=== PATIENT | female | born 1940 | race Caucasian/White ===

== ENCOUNTER 2024-04-07 05:15 | Inpatient (IN) | payer OTHER ==
[2024-04-07 05:47] LABS: Absolute Eosinophils 0.1 K/uL (0-0.5); Absolute Lymphocytes (CBC) 4.4 K/uL (0.7-4.9); Absolute Monocytes 0.4 K/uL (0.1-1.3); Absolute Neutrophil 3.9 K/uL (1.8-8.0); Basophils % 0.2 % (0-1.3); Eosinophils % 1.5 % (0-4.4); Hematocrit 38.2 % (36.0-45.0); Hemoglobin 12.9 g/dL (12.0-15.0); Lymphocytes % 49.5 % (15.3-44.8); MCH 30.6 pg (27.0-35.0); MCHC 33.8 g/dL (32.0-36.0); MCV 90.6 fL (80-100); MPV 9.2 fL (7.6-11.3); Neutrophils % 43.8 % (41.7-73.7); Nucleated Red Blood Cells % 0.1 % (0-0); Platelets 197 thou/uL (152-406); RBC Red Blood Cell Count 4.22 M/uL (3.86-4.86); Red Cell Distribution Width 13.7 % (12.1-15.2)
[2024-04-07 05:51] LABS: Protime INR 0.98
[2024-04-07 06:08] LABS: Albumin 3.5 g/dL (3.4-5.0); Albumin/Globulin Ratio 1.1 (1.1-1.8); Anion Gap 12.3 mEq/L (5.0-15.0); Bilirubin Direct 0.2 mg/dL (0-0.2); Bilirubin Indirect, Calculated 0.6 mg/dL (0.2-0.8); Bilirubin Total 0.8 mg/dL (0.2-1.0); Globulin 3.2 g/dL (2.3-3.5); Potassium 3.3 mEq/L (3.5-5.1); Protein, Total 6.7 g/dL (6.4-8.2)
[2024-04-07] MEDS ORDERED: MORPHINE 2 MG/ML SYR ONE (06:08)
[2024-04-07] MEDS ORDERED: NA CHLORIDE 0.9% 500 ML ONE (06:08)
[2024-04-07] MEDS ORDERED: NA CHLORIDE 0.9% 1,000 ML ONE (06:08)
[2024-04-07] MEDS ORDERED: ONDANSETRON 4 MG/2 ML VIAL ONE (06:08)
--- NOTE | 2024-04-07 06:12 | ER ---
Nurse's Notes [facility] Name: Oriana Davis Age: 83 yrs Sex: Female : 1940 Arrival Date: 04/07/2024 Time: 05:15 Bed 15 Private MD: Diagnosis: Chest pain, unspecified;Strain of muscle and tendon of back wall of thorax;Low back pain;Vomiting;Essential (primary) hypertension;Non ST elevation CA Presentation: 04/07 05:30 Chief complaint: Patient states: severe back pain that shoots all the way up the back. vc1 Coronavirus screen: Vaccine status: Patient reports receiving the 2nd dose of the covid vaccine. Client denies travel out of the [place] in the last 14 days. vomiting. Client presents with at least one sign or symptom that may indicate coronavirus-19. Ebola Screen: Patient negative for fever greater than or equal to 101.5 degrees Fahrenheit, and additional compatible Ebola Virus Disease symptoms Patient denies exposure to infectious person. Patient denies travel to an Ebola-affected area in the 21 days before illness onset. No symptoms or risks identified at this time. Initial Sepsis Screen: Does the patient meet any 2 criteria? No. Patient's initial sepsis screen is negative. Does the patient have a suspected source of infection? No. Patient's initial sepsis screen is negative. Risk Assessment: Do you want to hurt yourself or someone else? Patient reports no desire to harm self or others. Onset of symptoms was April 07, 2024 at 04:45. Care prior to arrival: Medication(s) given: Motrin, 400 mg. Activity prior to arrival: vomiting. Mechanism of Injury: No Mechanism of Injury. Transition of care: patient was not received from another setting of care. 05:30 Method Of Arrival: Ambulatory vc1 05:30 Acuity: CARLEY 3 vc1 Triage Assessment: 05:32 General: Appears distressed, uncomfortable, slender, well groomed, well developed, well vc1 nourished, Behavior is cooperative, anxious. Pain: Complains of pain in right low back and right mid back and left mid back and left low back Pain radiates to right subscapular area and left subscapular area Pain currently is 9 out of 10 on a pain scale. Quality of pain is described as pressure, radiating, Pain began suddenly, Also complains of vomiting. EENT: No deficits noted. No signs and/or symptoms were reported regarding the EENT system. Neuro: Level of Consciousness is awake, alert, obeys commands, Oriented to person, place, time, situation, Appropriate for age. Cardiovascular: No deficits noted. Denies chest pain, Capillary refill < 3 seconds Patient's skin is warm and dry. Rhythm is sinus bradycardia. Respiratory: Airway is patent Respiratory effort is even, unlabored, Respiratory pattern is regular, symmetrical, Breath sounds are clear bilaterally. GI: No deficits noted. No signs and/or symptoms were reported involving the gastrointestinal system. : No deficits noted. No signs and/or symptoms were reported regarding the genitourinary system. Derm: Skin is intact, is healthy with good turgor, Skin is dry, Skin is normal, Skin temperature is warm. Musculoskeletal: Circulation, motion, and sensation intact. Range of motion: intact in all extremities. Historical: - Allergies: 05:32 No Known Allergies; vc1 - Home Meds: 05:32 metoprolol tartrate 25 mg Oral tablet 0.5 tabs daily [Active]; vc1 - PMHx: 05:41 "Heart Flutter"; vc1 - PSHx: 05:41 None; vc1 - Immunization history:: Adult Immunizations up to date, Client reports receiving the 2nd dose of the Covid vaccine. - Infectious Disease History:: Denies. - Family history:: not pertinent. - Social history:: Smoking status: Patient denies any tobacco usage or history of. Screenin:36 [facility] ED Fall Risk Assessment (Adult) History of falling in the last 3 months, vc1 including since admission No falls in past 3 months (0 pts) Confusion or Disorientation No (0 pts) Intoxicated or Sedated No (0 pts) Impaired Gait No (0 pts) Mobility Assist Device Used No (0 pt) Altered Elimination No (0 pt) Score/Fall Risk Level 0 - 2 = Low Risk Oriented to surroundings, Maintained a safe environment, Educated pt \\T\\ family on fall prevention, incl call for assistance when getting out of bed. Abuse screen: Denies threats or abuse. Nutritional screening: No deficits noted. Tuberculosis screening: No symptoms or risk factors identified. Assessment: 06:21 General: Appears in no apparent distress. Behavior is calm, cooperative. Pain: al5 Complains of pain in back. Neuro: Level of Consciousness is awake, alert, obeys commands, Oriented to person, place, time, situation. Cardiovascular: Capillary refill < 3 seconds Patient's skin is warm and dry. Respiratory: Airway is patent Respiratory effort is even, unlabored, Respiratory pattern is regular, symmetrical. GI: No signs and/or symptoms were reported involving the gastrointestinal system. : No signs and/or symptoms were reported regarding the genitourinary system. EENT: No signs and/or symptoms were reported regarding the EENT system. Derm: Skin is intact, Skin is pink, warm \\T\\ dry. normal. Musculoskeletal: Reports pain in back. 07:38 Reassessment: Patient appears in no apparent distress at this time. Patient and/or ph family updated on plan of care and expected duration. Pain level reassessed. Patient is alert, oriented x 3, equal unlabored respirations, skin warm/dry/pink. Pt taken to receiver/laborer, report given to CHAO Lindsey Patient denies pain at this time. Vital Signs: 05:30 BP 161 / 97; Pulse 53; Resp 14; Temp 97.9; Pulse Ox 97% ; Weight 68.04 kg; Height 5 ft. vc1 5 in. ; Pain 9/10; 05:40 BP 163 / 77; Pulse 55; Resp 16; Pulse Ox 99% on R/A; al5 06:03 BP 153 / 83; Pulse 53; Resp 16; Pulse Ox 98% ; al5 07:00 BP 156 / 73; Pulse 57; Resp 16; Pulse Ox 97% on R/A; al5 05:30 Body Mass Index 24.96 (68.04 kg, 165.1 cm) vc1 05:30 Pain Scale: Adult vc1 ED Course: 05:26 Patient arrived in ED. marita 05:26 Rolando Edge MD is Attending Physician. marita 05:30 Inserted saline lock: 20 gauge in right antecubital area, using aseptic technique. oe Blood collected. Flushed with 10 mL NS. 05:32 Triage completed. vc1 05:36 Arm band placed on right wrist. vc1 05:40 Patient has correct armband on for positive identification. Placed in gown. Bed in low vc1 position. Call light in reach. Adult w/ patient. compliance monitor on. Pulse ox on. NIBP on. 05:42 CT Aorta for Dissection In Process Unspecified. EDMS 06:00 XRAY Chest (1 view) In Process Unspecified. EDMS 06:06 Zuri Fitzgerald, CHAO is Primary Nurse. al5 06:10 Joe Marrero MD is Hospitalizing Provider. marita 06:22 No provider procedures requiring assistance completed. al5 06:22 Provided Education on: processes and procedures. al5 07:38 Patient admitted, IV remains in place. ph Administered Medications: 06:19 Drug: Ondansetron IVP 4 mg IVP once; over 2 minutes Route: IVP; Site: right antecubital;al5 06:42 Follow up: Response: No adverse reaction; Nausea is decreased al5 06:20 Drug: NS 0.9% IV 500 ml IV at bolus once Route: IV; Rate: bolus; Site: right al5 antecubital; 07:14 Follow up: Response: No adverse reaction; IV Status: Completed infusion; IV Intake: al5 500ml 06:20 Drug: NS 0.9% IV 1000 ml IV at 125 ml/hr continuous Route: IV; Rate: 125 ml/hr; Site: al5 right antecubital; 06:20 Drug: morphine IVP or IV 2 mg IVP once over 4 mins Route: IVP; Infused Over: 4 mins; al5 Site: right antecubital; 06:42 Follow up: Response: No adverse reaction; Pain is decreased al5 06:56 Drug: Clopidogrel PO 300 mg PO once Route: PO; al5 07:37 Follow up: Response: No adverse reaction ph 06:56 Drug: Heparin (CA-Bolus No thrombolytic) - HEParin IVP 60 units/kg IVP once; Max 5000 al5 units {Co-Signature: cp4 (Suzy Rosado).} Route: IVP; Site: right antecubital; 07:37 Follow up: Response: No adverse reaction ph 07:14 Drug: Heparin (CA Drip) 12 units/kg/[place] - ([place] [address] units, D5W IV 500 ml) IV at al5 calculated rate Per protocol; Max initial rate 1000 units/hr {Co-Signature: ph (Taty Larios RN).} Route: IV; Rate: calculated rate; Site: right antecubital; 07:37 Follow up: Response: No adverse reaction; IV Status: Infusion continued upon admission ph 07:37 Not Given (Other Intervention Used): morphineor iv 2 mg IVP once over 4 mins ph Medication: 05:37 VIS not applicable for this client. vc1 Intake: 07:14 IV: 500ml; Total: 500ml. al5 Outcome: 06:11 Decision to Hospitalize by Provider. [facility] 07:37 Admitted to Hand Cloth Cutter accompanied by nurse, family with patient, via stretcher, ph 07:37 Condition: stable 07:37 Instructed on the need for admit, 07:38 Patient left the ED. ph Signatures: Dispatcher [employer] EDRolando Vera MD MD cha Hall, Patricia, CHAO RN ph Tyler Watson Vanessa RN RN vc1 Zuri Fitzgerald RN RN al5 Suzy Rosado cp4 Taty Larios RN ph
--- NOTE | 2024-04-07 06:12 | EDPHYS ---
Physician Documentation [facility] Name: Oriana Davis Age: 83 yrs Sex: Female : 1940 Arrival Date: 04/07/2024 Time: 05:15 Bed 15 Private MD: KAROL Physician Rolando Edge HPI: 04/07 05:30 This 83 yrs old Female presents to ER via Unassigned with complaints of Back marita Pain. 05:30 The patient or guardian reports chest pain that is located primarily in the substernal marita area. The patient presents with pain that is acute, with no known mechanism of injury. The symptoms are located in the left scapular area, right scapular area, left low back, left mid back, right mid back and right low back. Onset: The symptoms/episode began/occurred last night. The pain radiates to the chest. Associated signs and symptoms: Pertinent positives: nausea, vomiting. Historical: - Allergies: 05:32 No Known Allergies; vc1 - Home Meds: 05:32 metoprolol tartrate 25 mg Oral tablet 0.5 tabs daily [Active]; vc1 - PMHx: 05:41 "Heart Flutter"; vc1 - PSHx: 05:41 None; vc1 - Immunization history:: Adult Immunizations up to date, Client reports receiving the 2nd dose of the Covid vaccine. - Infectious Disease History:: Denies. - Family history:: not pertinent. - Social history:: Smoking status: Patient denies any tobacco usage or history of. ROS: 05:32 Constitutional: Negative for fever, chills, and weight loss, Eyes: Negative for injury, marita pain, redness, and discharge, ENT: Negative for injury, pain, and discharge, Neck: Negative for injury, pain, and swelling, Respiratory: Negative for shortness of breath, cough, wheezing, and pleuritic chest pain, : Negative for injury, bleeding, discharge, and swelling, MS/Extremity: Negative for injury and deformity, Skin: Negative for injury, rash, and discoloration, Neuro: Negative for headache, weakness, numbness, tingling, and seizure, Psych: Negative for depression, anxiety, suicide ideation, homicidal ideation, and hallucinations, Allergy/Immunology: Negative for hives, rash, and allergies, Endocrine: Negative for neck swelling, polydipsia, polyuria, polyphagia, and marked weight changes, Hematologic/Lymphatic: Negative for swollen nodes, abnormal bleeding, and unusual bruising, 05:32 Cardiovascular: Positive for chest pain, 05:32 Abdomen/GI: Positive for nausea, vomiting, 05:32 Back: Positive for pain at rest, of the left scapular area, right scapular area, left subscapular area, right subscapular area, left low back, left mid back, right mid back and right low back, Exam: 05:32 Constitutional: This is a well developed, well nourished patient who is awake, alert, marita and in no acute distress. Head/Face: Normocephalic, atraumatic. Eyes: Pupils equal round and reactive to light, extra-ocular motions intact. Lids and lashes normal. Conjunctiva and sclera are non-icteric and not injected. Cornea within normal limits. Periorbital areas with no swelling, redness, or edema. ENT: Nares patent. No nasal discharge, no septal abnormalities noted. Tympanic membranes are normal and external auditory canals are clear. Oropharynx with no redness, swelling, or masses, exudates, or evidence of obstruction, uvula midline. Mucous membranes moist. Neck: Trachea midline, no thyromegaly or masses palpated, and no cervical lymphadenopathy. Supple, full range of motion without nuchal rigidity, or vertebral point tenderness. No Meningismus. Chest/axilla: Normal chest wall appearance and motion. Nontender with no deformity. No lesions are appreciated. Cardiovascular: Regular rate and rhythm with a normal S1 and S2. No gallops, murmurs, or rubs. Normal PMI, no JVD. No pulse deficits. Respiratory: Lungs have equal breath sounds bilaterally, clear to auscultation and percussion. No rales, rhonchi or wheezes noted. No increased work of breathing, no retractions or nasal flaring. Abdomen/GI: Soft, non-tender, with normal bowel sounds. No distension or tympany. No guarding or rebound. No evidence of tenderness throughout. Back: No spinal tenderness. No costovertebral tenderness. Full range of motion. Female : Normal external genitalia. Skin: Warm, dry with normal turgor. Normal color with no rashes, no lesions, and no evidence of cellulitis. MS/ Extremity: Pulses equal, no cyanosis. Neurovascular intact. Full, normal range of motion. Neuro: Awake and alert, GCS 15, oriented to person, place, time, and situation. Cranial nerves II-XII grossly intact. Motor strength 5/5 in all extremities. Sensory grossly intact. Cerebellar exam normal. Normal gait. Psych: Awake, alert, with orientation to person, place and time. Behavior, mood, and affect are within normal limits. 05:32 ECG was reviewed by the Attending Physician. 05:32 Musculoskeletal/extremity: ROM: no acute changes, Circulation is intact in all extremities. Sensation intact. Compartment Syndrome exam of affected extremity: is normal. Weight bearing: able to fully bear weight, without difficulty, DVT Exam: No signs of deep vein thrombosis. no pain, no swelling, no tenderness, negative Homans' sign noted on exam, no appreciated bluish discoloration, no erythema, no increased warmth, 06:42 ECG was reviewed by the Attending Physician. [facility] Vital Signs: 05:30 BP 161 / 97; Pulse 53; Resp 14; Temp 97.9; Pulse Ox 97% ; Weight 68.04 kg; Height 5 ft. vc1 5 in. ; Pain 9/10; 05:40 BP 163 / 77; Pulse 55; Resp 16; Pulse Ox 99% on R/A; al5 06:03 BP 153 / 83; Pulse 53; Resp 16; Pulse Ox 98% ; al5 07:00 BP 156 / 73; Pulse 57; Resp 16; Pulse Ox 97% on R/A; al5 05:30 Body Mass Index 24.96 (68.04 kg, 165.1 cm) vc1 05:30 Pain Scale: Adult vc1 MDM: 05:26 Patient medically screened. [facility] 05:48 Differential diagnosis: abnormal EKG, acute myocardial infarction, acute pericarditis, marita chest wall pain, Cholelithiasis arthritis, Cholelithiasis esophagitis, hiatal hernia, pancreatitis, pneumonia, pneumothorax, pulmonary embolus, stable angina, Fatigue Fracture Hydronephrosis Pyelonephritis Renal Infarction ruptured disc, Ureterolithiasis thoracic aortic disection, unstable angina. HEART Score: History: Moderately Suspicious (1), ECG: Non specific repolarization disturbance / LBTB / PM (1), Age: > or = 65 years (2), Risk Factors: > or = 3 Risk factors for atherosclerotic disease (2), [Hypercholesterolemia] [Hypertension] [+ Family HX] Troponin: < or = 1 x Normal Limit (0). The patient was given aspirin in the Emergency Department. LEE Risk Score: 1 - patient's age is greater or equal to 65 years, 1 - Three or more CAD risk factors, TOTAL SCORE = 2. Data reviewed: vital signs, nurses notes, lab test result(s), EKG, radiologic studies, CT scan, plain films. Consideration of Admission/Observation Patient was admitted/placed on observation. Escalation of care including admission/observation considered. I considered the following discharge prescriptions or medication management in the emergency department Medications were administered in the Emergency Department. See MAR. Independent interpretation of the following test(s) in the Emergency Department EKG: See my EKG interpretation above. Test considered but Not performed: Ultrasound no 2 d echo. 06:05 Patient medically screened. [facility] 04/07 05:28 Order name: Basic Metabolic Panel; Complete Time: 06:24 [facility] 04/07 05:28 Order name: CBC with Diff [facility] 04/07 05:28 Order name: LFT's; Complete Time: 06:24 [facility] 04/07 05:28 Order name: Magnesium; Complete Time: 06:24 [facility] 04/07 05:28 Order name: NT PRO-BNP; Complete Time: 06:24 [facility] 04/07 05:28 Order name: PT-INR; Complete Time: 06:06 [facility] 04/07 05:28 Order name: Troponin HS; Complete Time: 06:24 [facility] 04/07 05:28 Order name: Lipase; Complete Time: 06:24 [facility] 04/07 05:28 Order name: Urinalysis w/ reflexes [facility] 04/07 07:14 Order name: Ptt, Activated ph 04/07 07:29 Order name: PTT, Activated Partial Thromb [facility] 04/07 05:28 Order name: XRAY Chest (1 view) [facility] 04/07 05:28 Order name: CT Aorta for Dissection [facility] 04/07 06:17 Order name: CONS Physician Consult [facility] 04/07 06:30 Order name: EKG; Complete Time: 06:30 [facility] 04/07 05:28 Order name: Cardiac monitoring; Complete Time: 05:41 [facility] 04/07 05:28 Order name: EKG - Nurse/Tech; Complete Time: 05:41 [facility] 04/07 05:28 Order name: IV Saline Lock; Complete Time: 05:31 [facility] 04/07 05:28 Order name: Labs collected and sent; Complete Time: 05:41 [facility] 04/07 05:28 Order name: O2 Per Protocol; Complete Time: :42 [facility] 04/07 05:28 Order name: O2 Sat Monitoring; Complete Time: 05:42 [facility] 04/07 06:37 Order name: NPO; Complete Time: 06:42 [facility] EC:32 Rate is 51 beats/min. Rhythm is regular. QRS [place] is Normal. CT interval is normal. QRS marita interval is normal. QT interval is normal. No Q waves. T waves are Normal. No ST changes noted. Clinical impression: Normal ECG and No evidence of ischemia. Interpreted by me. Reviewed by me. 06:42 Rate is 55 beats/min. Rhythm is regular. QRS [place] is Normal. CT interval is normal. QRS marita interval is normal. QT interval is prolonged at 501 msec. No Q waves. T waves are Normal. No ST changes noted. Clinical impression: Sinus bradycardia. Interpreted by me. Reviewed by me. Administered Medications: 06:19 Drug: Ondansetron IVP 4 mg IVP once; over 2 minutes Route: IVP; Site: right antecubital;al5 06:42 Follow up: Response: No adverse reaction; Nausea is decreased al5 06:20 Drug: NS 0.9% IV 500 ml IV at bolus once Route: IV; Rate: bolus; Site: right al5 antecubital; 07:14 Follow up: Response: No adverse reaction; IV Status: Completed infusion; IV Intake: al5 500ml 06:20 Drug: NS 0.9% IV 1000 ml IV at 125 ml/hr continuous Route: IV; Rate: 125 ml/hr; Site: al5 right antecubital; 06:20 Drug: morphine IVP or IV 2 mg IVP once over 4 mins Route: IVP; Infused Over: 4 mins; al5 Site: right antecubital; 06:42 Follow up: Response: No adverse reaction; Pain is decreased al5 06:56 Drug: Clopidogrel PO 300 mg PO once Route: PO; al5 07:37 Follow up: Response: No adverse reaction ph 06:56 Drug: Heparin (MT-Bolus No thrombolytic) - HEParin IVP 60 units/kg IVP once; Max 5000 al5 units {Co-Signature: cp4 (Suzy Rosado).} Route: IVP; Site: right antecubital; 07:37 Follow up: Response: No adverse reaction ph 07:14 Drug: Heparin (MT Drip) 12 units/kg/[place] - ([place] [address] units, D5W IV 500 ml) IV at al5 calculated rate Per protocol; Max initial rate 1000 units/hr {Co-Signature: ph (Taty Larios RN).} Route: IV; Rate: calculated rate; Site: right antecubital; 07:37 Follow up: Response: No adverse reaction; IV Status: Infusion continued upon admission ph 07:37 Not Given (Other Intervention Used): morphineor iv 2 mg IVP once over 4 mins ph Disposition Summary: 04/07/24 06:11 Hospitalization Ordered Notes: Provider: Joe Marrero cha Condition: Stable marita Problem: new marita Symptoms: have improved marita Bed/Room Type: Standard marita Hospitalization Status: Inpatient Admission(04/07/24 06:23) marita Location: Intensive Care Unit(04/07/24 06:23) marita Room Assignment: (04/07/24 06:23) marita Diagnosis - Chest pain, unspecified marita - Strain of muscle and tendon of back wall of thorax marita - Low back pain marita - Vomiting marita - Essential (primary) hypertension marita - Non ST elevation MT marita Forms: - Medication Reconciliation Form marita - SBAR form marita - Leadership Thank You Letter marita Signatures: Dispatcher [employer] EDMS Rolando Edge MD MD cha Calcote, Vanessa RN RN vc1 Zuri Fitzgerald RN RN al5 Taty Larios RN ph Suzy Rosado cp4 Taty Larios RN ph Corrections: (The following items were deleted from the chart) 05:29 05:29 BASIC METABOLIC PANEL+C.LAB.BRZ ordered. EDMS EDMS 05:29 05:29 CBC+H.LAB.BRZ ordered. EDMS EDMS 05:29 05:29 HEPATIC FUNCTION+C.LAB.BRZ ordered. EDMS EDMS 05:29 05:29 MAGNESIUM+C.LAB.BRZ ordered. EDMS EDMS 05:29 05:29 PROBNP+C.LAB.BRZ ordered. EDMS EDMS 05:29 05:29 PROTIME (+INR)+COAG.LAB.BRZ ordered. EDMS EDMS 05: 05:29 Troponin High Sensitivity+C.LAB.BRZ ordered. EDMS EDMS 05: 05:29 LIPASE+C.LAB.BRZ ordered. EDMS EDMS 05: 05:29 Urinalysis+U.LAB.BRZ ordered. EDMS EDMS 05:29 05:29 Chest Single View+RAD.RAD.BRZ ordered. EDMS EDMS 05: 05:29 Angio Aorta For Dissection+CT.RAD.BRZ ordered. EDMS EDMS 06: 06:11 Observation critical [facility] 06: 06:11 Telemetry/MedSurg (observation) critical access hospital 06:11 critical access hospital
[2024-04-07 06:20] LABS: Troponin High Sensitivity 1468.1 pg/mL (<58.9)
[2024-04-07] MEDS ORDERED: HEPARIN 5000 UNIT/ML 1 ML VIAL ONE ×2 (06:51→07:29)
[2024-04-07] MEDS ORDERED: CLOPIDOGREL 75 MG TABLET ONE ×2 (06:51→07:30)
[2024-04-07] MEDS ORDERED: HEPARIN/D5W 25,000 UNIT/500 ML BAG IV ONE (06:52)
[2024-04-07] MEDS ORDERED: NITROGLYCERIN/D5W 50 MG/250 ML BTL IV ONE (07:28)
[2024-04-07] MEDS ORDERED: HEPA 1000U/500MLS 2,000 UNIT/1,000 ML BAG IV ONE (07:28)
[2024-04-07] MEDS ORDERED: LIDOCAINE 1% 20 ML MDV ONE (07:28)
[2024-04-07] MEDS ORDERED: FENTANYL CITR 100 MCG/2 ML ONE (07:29)
[2024-04-07] MEDS ORDERED: MIDAZOLAM HCL 2 MG/2 ML INJ ONE (07:29)
[2024-04-07] MEDS ORDERED: ATROPINE SULF 1 MG/10 ML SYR IV ONE (07:29)
[2024-04-07] MEDS ORDERED: ASPIRIN 325 MG TAB ONE (07:30)
[2024-04-07] MEDS ORDERED: HEPARIN 10,000 UNIT/10 ML VIAL IV ONE (07:30)
[2024-04-07] MEDS ORDERED: TICAGRELOR 90 MG TABLET PO ONE (07:30)
--- NOTE | 2024-04-07 07:40 | P.CNS ---
Date of Consult: 04/07/24 Chief Complaint: chest pain History of Present Illness: Patient presented with chest pain, pressure in nature, mid chest and epigastric region that has been going on since yesterday, radiating to the back, deneis SOB, no palpitations, no syncope. Allergies No Known Allergies Allergy (Unverified 04/07/24 06:39) Home medications list reviewed: Yes - Social History Smoking Status: Never smoker Review of Systems 10-point ROS is otherwise unremarkable Physical Examination General: Alert, In no apparent distress HEENT: Atraumatic, PERRLA, Mucous membr. moist/pink, EOMI, Sclerae nonicteric Neck: Supple, 2+ carotid pulse no bruit, No LAD, Without JVD or thyroid abnormality Respiratory: Clear to auscultation bilaterally, Normal air movement Cardiovascular: Regular rate/rhythm, Normal S1 S2 Gastrointestinal: Normal bowel sounds, No tenderness Musculoskeletal: No tenderness Integumentary: No rashes Neurological: Normal gait, Normal speech, Normal tone, Normal affect Lymphatics: No axilla or inguinal lymphadenopathy Laboratory Data (last 24 hrs) 04/07/24 04/07/24 04/07/24 05:30 05:30 05:30 WBC 9.00 Hgb 12.9 Hct 38.2 Plt Count 197 PT 11.0 INR 0.98 APTT 35.9 Sodium Potassium BUN Creatinine Glucose Magnesium Total Bilirubin AST ALT Alkaline Phosphatase Lipase 04/07/24 05:30 WBC Hgb Hct Plt Count PT INR APTT Sodium 141 Potassium 3.3 L BUN 19 H Creatinine 0.78 Glucose 115 H Magnesium 2.0 Total Bilirubin 0.8 AST 16 ALT 21 Alkaline Phosphatase 105 Lipase 29 - Problems (1) NSTEMI (non-ST elevated myocardial infarction) Current Visit: Yes Status: Acute Plan: troponin elevated with no significant EKG changes, Coronary angiogram this morning. Heparin drip ASA 325 mg po x1 Lipitor 40 mg daily
[2024-04-07 08:43] LABS: Atypical Lymphocytes 3 %; Differential Total Cells Count 100; Eosinophils 2 % (0-3); Lymphocytes 48 % (15-42); Monocytes 9 % (0-10); Platelet Estimate ADEQ; Segmented Neutrophils 37 % (40-80); White Blood Cell Scan DIFF (OK)
[2024-04-07 08:44] LABS: Blood Morphology Comment NOT SEEN (NOT SEEN)
[2024-04-07 10:12] VITALS: BMI 25.0
[2024-04-07] MEDS ORDERED: MORPHINE 4 MG/ML SYR IV PRN (11:43)
[2024-04-07] MEDS ORDERED: HEPARIN/D5W 25,000 UNIT/500 ML BAG IV SCH (11:43)
[2024-04-07] MEDS ORDERED: ONDANSETRON 4 MG/2 ML VIAL IV PRN (11:43)
[2024-04-07] MEDS ORDERED: ACETAMINOPHEN 325 MG TABLET PO PRN (11:46)
[2024-04-07] MEDS ORDERED: CLOPIDOGREL 75 MG TABLET PO SCH (12:00)
[2024-04-07] MEDS: ASPIRIN EC 81 MG TAB PO SCH (12:00)
[2024-04-07] MEDS: FAMOTIDINE 20 MG/2 ML VIAL IV SCH (12:30)
--- NOTE | 2024-04-07 16:54 | EKG ---
Test Date: 2024-04-07 Test Time: 06:38:59 Senior Boiler Operator: NESTOR MEASUREMENT RESULTS: Intervals: Rate: 55 IL: 194 QRSD: 88 QT: 524 QTc: 501 [place]: P: 69 IL: 194 QRS: 91 T: 68 INTERPRETIVE STATEMENTS: Sinus bradycardia Prolonged QT Abnormal ECG Compared to ECG 06/25/2016 18:53:03 Prolonged QT interval now present Sinus rhythm no longer present Atrial premature complex(es) no longer present Ventricular premature complex(es) no longer present ST (T wave) deviation no longer present Electronically Signed On 04-07-24 16:53:34 CDT by Krish Chandler
--- NOTE | 2024-04-07 17:51 | RAD REPORT ---
EXAM DESCRIPTION: CT - Angio Aorta For Dissection - 04/07/2024 7:00 am CLINICAL HISTORY: 83 years Female PAIN, rule out dissection TECHNIQUE: Following the administration of intravenous contrast, multiple high-resolution axial imag es of the chest, abdomen and pelvis were performed followed by sagittal and coronal reconstructed fatimah ges. Coronal and sagittal MIP images were also performed.The CT study is performed according to ALARA (as low as reasonably achievable) or ALARA/IMAGE GENTLY, with automatic adjustment of mA and/or kV a ccording to patient size. Performed on: 04/07/2024 at 5:48 AM COMPARISON: No prior studies were available for comparison. FINDINGS: CTA CHEST: There is suboptimal contrast opacification of the pulmonary arteries on this examination. There is greater enhancement of the thoracic aorta as compared to the pulmonary arteries. This study was optim ized for evaluation of the thoracic aorta. The thoracic aorta is normal in caliber and contour withou t evidence of aneurysm or dissection. The pulmonary artery trunk and main pulmonary arteries enhance homogeneously without intra-arterial filling defects to suggest pulmonary embolism. However, evaluati on of the segmental and subsegmental pulmonary arteries is limited for evaluation of pulmonary emboli on this examination. The lungs are well expanded and are clear. There is no evidence of a pneumothorax. There are no pleur al effusions. The central airways are patent. The heart is normal in size. There is no pericardial effusion. There is no evidence of hilar, mediastinal or axillary lymphadenopathy. No acute osseous abnormality is identified. Non-Angiographic Findings: The thyroid gland is normal in size and configuration.. CTA ABDOMEN AND PELVIS: Liver: The liver is normal in size and configuration. There is an approximately 1 cm left hepatic lob e cyst. Liver attenuation is difficult to assess due to the arterial phase of contrast-enhancement. Spleen: The spleen is normal in size and configuration. There is heterogeneous enhancement of the spl een likely related to the arterial phase of contrast-enhancement. Gallbladder and bile duct: The gallbladder is well distended and unremarkable. There is no biliary ductal dilatation. Pancreas: The pancreas is grossly normal in size and configuration. Adrenal Glands: The adrenal glands are normal in size and configuration. Kidneys: The kidneys are normal in size and configuration. There is no evidence of hydronephrosis. Th ere is no evidence of nephrolithiasis. No definite solid or cystic renal mass lesions are identified. Stomach: The stomach is grossly normal. There is a small sliding-type hiatal hernia. Bowel: The bowel gas pattern is non specific and non obstructive. Appendix: The appendix is not clearly identified on this examination. There is no CT evidence to sugg est acute appendicitis. Free air: There is no evidence of free air. Free fluid: There is no evidence of free fluid. Vasculature: The aorta is normal in caliber and contour. There are minimal atherosclerotic calcificat ions along the abdominal aorta and proximal major branch vessels. Celiac artery, superior and inferio r mesenteric arteries, bilateral renal arteries, common iliac arteries, internal and external iliac a rteries and common femoral arteries are patent and are normal in caliber and contour. The proximal arzola perficial femoral arteries are patent and are normal in caliber and contour. The inferior vena cava i s grossly unremarkable. Lymphadenopathy: No pathologic lymphadenopathy is identified. Bladder: The bladder is partially distended and smooth in contour. Reproductive: The uterus is surgically absent. Bones: No acute osseous abnormalities are identified. There are mild degenerative changes of the lumb ar spine and pelvis. Soft tissues: No focal soft tissue abnormalities are identified. There is a small fat-containing vent ral umbilical hernia. There is an intramuscular lipoma within the left vastus lateralis muscle IMPRESSION: CTA CHEST: 1. Suboptimal contrast opacification of the pulmonary arteries on this examination. This study was optimized for evaluation of the thoracic aorta. The pulmonary artery trunk and main pulmonary arterie s enhance homogeneously without intra-arterial filling defects to suggest pulmonary emboli. However, evaluation of the segmental and subsegmental pulmonary arteries is limited for evaluation of pulmonar y emboli on this examination. 2. No evidence of thoracic aortic aneurysm or aortic dissection. 3. No evidence of acute intrathoracic disease. CTA ABDOMEN AND PELVIS: 1. No evidence of acute intra-abdominal or intrapelvic pathology. 2. Small sliding-type hiatal hernia. 3. Remote hysterectomy. 4. Mild degenerative changes of the skeletal and vascular structures. 5. 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 6. Small fat-containing ventral umbilical hernia. 7. Normal CTA of the abdomen and pelvis. There is no evidence of aortic aneurysm or aortic dissecti on. Electronically signed by: Trisha Aldana DO 04/07/2024 06:46 AM CDT Due to temporary technical issues with the PACS/Fluency reporting system, reports are being signed by the in house radiologists without review as a courtesy to insure prompt reporting. The interpreting radiologist is fully responsible for the content of the report.
--- NOTE | 2024-04-07 18:31 | RAD REPORT ---
EXAM DESCRIPTION: RAD - Chest Single View - 04/07/2024 5:58 am CLINICAL HISTORY: Chest pain;Dissection COMPARISON: Chest Single View dated 06/25/2016 FINDINGS: Lines: None. Lungs: No evidence of edema or pneumonia. Pleural: No significant pleural effusions or pneumothorax. Cardiac: The heart size is within normal limits. Mediastinum: Within normal limits. Bones: No acute fractures. Other: None IMPRESSION: No acute cardiopulmonary disease.
[2024-04-07] MEDS: TICAGRELOR 90 MG TABLET PO SCH (20:19)
[2024-04-07] MEDS: ATORVASTATIN 40 MG TAB PO SCH (20:20)
[2024-04-07] MEDS: ACETAMINOPHEN 325 MG TABLET PO PRN (20:29)
--- NOTE | 2024-04-07 21:35 | P.SSS ---
Patient History Date of Service: 04/07/24 Reason for admission: chest pain History of Present Illness: RAINER IS A NON SMOKER AND NON DIABETIC WHO HAD SEVERE WHOLE BACK PAIN THAT IS DIFFERENT THAN HER USUAL BACK PAIN FROM ARTHRTIS. SHE WOKE UP WITH NAUSEA AND VOMITING WITH DIARRHEA. DR. BRADSHAW DID TROP LEVEL AND IT WAS IN THOUSANDS. DR. LUCAS DID CATH AND FOUUND LAD OBSTRUCTION AND PLACED IN A STENT. I SAW HER AT LUNCH TIME AFTER STENT AND SHE IS STABLE. SHE IS ON BRILLINTA AND STATIN. SHE WILL BE ABLE TO GO HOME IN AM Allergies No Known Allergies Allergy (Unverified 04/07/24 06:39) Home medications list reviewed: Yes Home Medications: Metoprolol Succinate [Toprol Xl] 12.5 mg PO DAILY 04/07/24 - Past Medical/Surgical History Has patient received pneumonia vaccine in the past: Yes Diabetic: No -: Palpitation -: Atrial Flutter -: C sectionx1 -: Hysterectomy -: Tonsilectomy - Family History Father -: Heart disease Mother -: Cancer Notes: Lukemia - Social History Smoking Status: Never smoker Alcohol use: No CD- Drugs: No Caffeine use: Yes Place of Residence: Home Review of Systems 10-point ROS is otherwise unremarkable Physical Examination - Vital Signs Temperature: 98 F Blood Pressure: 119/66 Pulse: 52 Respirations: 16 Pulse Ox (%): 98 - Physical Exam General: Alert, In no apparent distress HEENT: Atraumatic, PERRLA, Mucous membr. moist/pink, EOMI, Sclerae nonicteric Neck: Supple, 2+ carotid pulse no bruit, No LAD, Without JVD or thyroid abnormality Respiratory: Clear to auscultation bilaterally, Normal air movement Cardiovascular: Regular rate/rhythm, Normal S1 S2 Gastrointestinal: Normal bowel sounds, No tenderness Musculoskeletal: No tenderness Integumentary: No rashes Neurological: Normal gait, Normal speech, Normal strength at 5/5 x4 extr, Normal tone, Normal affect Lymphatics: No axilla or inguinal lymphadenopathy - Studies Laboratory Data (last 24 hrs) 04/07/24 04/07/24 04/07/24 05:30 05:30 05:30 WBC 9.00 Hgb 12.9 Hct 38.2 Plt Count 197 PT 11.0 INR 0.98 APTT 35.9 Sodium Potassium BUN Creatinine Glucose Magnesium Total Bilirubin AST ALT Alkaline Phosphatase Lipase 04/07/24 05:30 WBC Hgb Hct Plt Count PT INR APTT Sodium 141 Potassium 3.3 L BUN 19 H Creatinine 0.78 Glucose 115 H Magnesium 2.0 Total Bilirubin 0.8 AST 16 ALT 21 Alkaline Phosphatase 105 Lipase 29 - Diagnosis (Problem(s)) (1) NSTEMI (non-ST elevated myocardial infarction) Current Visit: Yes Status: Acute Plan: LAD WITH STENT STABLE MEDS CHANGED. DC IN AM. FU WITH DR. LUCAS. - Disposition Disposition: ROUTINE DISCHARGE
--- NOTE | 2024-04-08 01:59 | OP ---
Date of Procedure: 04/07/2024 Surgeon: Krish Chandler Procedures Performed: 1.Selective coronary angiogram. 2.Left heart catheterization. 3.PCI of the mid LAD with Synergy 3.0 x 20 mm drug-eluting stent. Indication For Procedure: Gin-RU-plliuflfy FL. Complications: None. Estimated Blood Loss: Less than 50 cc. Sedation Time: 30 minutes with 2 of Versed and 50 of fentanyl. Access: Right radial, closed by TR band. Description Of Procedure: After risks, benefits, and alternatives were explained to the patient, the patient agreed to proceed with the procedure and signed informed consent. The patient was brought b [facility] to the [place] slabs, prepped and draped in a sterile fashion. Time-out was performed. Sedation was administered. Next, the right radial ultrasound-guided access was obtained. A [place] 4 catheter was advanced over J-wire to the LV cavity. LVEDP was obtained. Pullback did not show any gradient. Dawit e catheter was used for selective angiogram of the left and right coronary systems. Later on, that c atheter was exchanged for an EBU 3.0 mm guide to the left main. Heparin was administered, ACT was th erapeutic. Next, a run-through wire was passed across the lesion, pre-dilated the lesions with an NC 2.5 mm balloon that was followed by placement of a Synergy 3.0 x 20 mm drug-eluting stent to close t he lesion, it was postdilated with an NC 3.5 mm balloon. Final angiogram shows LEE-3 flow. Wire wa s removed. Catheter was removed over a J-wire and sheath was removed. TR band was applied and hemos tasis achieved. The patient was moved back to recovery in stable condition. Findings: 1.Left main, normal with distal 20% disease. 2.LAD, mid 70% disease, status post PCI with Synergy 3.0 x 20 mm drug-eluting stent, then distally i s a small artery. Gives large diagonal that got mild LI. 3.Left circ, mild LI. 4.RCA, mid 30% disease and mild luminal irregularities. 5.LVEDP is 11 mmHg. Assessment And Plan: Significant mid LAD disease, status post PCI with Synergy 3.0 x 20 mm drug-elut ing stent. Aspirin 81 mg daily for life. Brilinta 180 mg p.o. x1 was given in the [place]yer cork slabs, continue Brilinta 90 mg p.o. b.i.d. for 12 months. Continue aggressive medical treatment for CAD. OTILIO/QASIM Voice ID: [id number] Report ID: [id number]
[2024-04-08 07:18] LABS: Absolute Eosinophils 0.1 K/uL (0-0.5); Absolute Monocytes 0.5 K/uL (0.1-1.3); Absolute Neutrophil 5.2 K/uL (1.8-8.0); Basophils % 0.5 % (0-1.3); Eosinophils % 1.4 % (0-4.4); Hemoglobin 12.6 g/dL (12.0-15.0); Lymphocytes % 25.2 % (15.3-44.8); MCH 30.6 pg (27.0-35.0); MCHC 33.2 g/dL (32.0-36.0); MCV 92.2 fL (80-100); MPV 9.5 fL (7.6-11.3); Monocytes % 6.5 % (3.3-12.3); Neutrophils % 66.4 % (41.7-73.7); Platelets 173 thou/uL (152-406); RBC Red Blood Cell Count 4.12 M/uL (3.86-4.86); Red Cell Distribution Width 13.7 % (12.1-15.2)
[2024-04-08 07:28] LABS: Anion Gap 9.4 mEq/L (5.0-15.0); Potassium 4.4 mEq/L (3.5-5.1)
[2024-04-08] MEDS ORDERED: CLOPIDOGREL 75 MG TABLET PO SCH (09:00)
[2024-04-08] MEDS: METOPROLOL XL 25 MG TAB PO SCH (09:00)
[2024-04-08 09:07] VITALS: O2SAT 98
[2024-04-08 10:17] VITALS: BP 120/62; TEMP 97.5
== END 2024-04-08 12:00 | disposition home or self-care (01) | DRG 322 ==
LOC: ER 05:15 → ERHOLD 06:13 → 2ND 12:09
PROVIDERS: ADMIT Internal Medicine; ATTEND Internal Medicine
PROC: 027034Z Dilation of Coronary Artery, One Artery with Drug-eluting Intraluminal Device, Percutaneous Approach (ICD-10-PCS; principal; 2024-04-07)
PROC: 4A023N7 Measurement of Cardiac Sampling and Pressure, Left Heart, Percutaneous Approach (ICD-10-PCS; 2024-04-07)
PROC: B2111ZZ Fluoroscopy of Multiple Coronary Arteries using Low Osmolar Contrast (ICD-10-PCS; 2024-04-07)
DX: I21.4 Non-ST elevation (NSTEMI) myocardial infarction (principal); M54.50 Low back pain, unspecified; I10 Essential (primary) hypertension; S29.012A Strain of muscle and tendon of back wall of thorax, initial encounter; Z79.899 Other long term (current) drug therapy; Z90.710 Acquired absence of both cervix and uterus
CPT/HCPCS: 36415; 71045; 71275; 74175; 76937; 80048; 80076; 83690; 83735; 83880; 84484; 85025; 85610; 85730; 93005; 93458; 96361; 96365; 96375; 99152; 99153; 99285; C1725; C1893; C9600; J0461; J1644; J2001; J2250; J2270; J2405; J3010; J7030; J7040; Q9967

== ENCOUNTER 2024-04-09 16:07 | Emergency (ER) | payer OTHER ==
--- NOTE | 2024-04-09 18:02 | RAD REPORT ---
EXAM DESCRIPTION: US - Upper Ext Artery Uni Tex - 04/09/2024 5:53 pm CLINICAL HISTORY: UPPER EXTREMITY Arm pain and swelling COMPARISON: <Comparisons> FINDINGS: Right upper extremity arterial Doppler was performed. There is no evidence of abnormal josefina w limiting stenosis or occlusion. No significant flow abnormality seen.
--- NOTE | 2024-04-09 18:10 | EDPHYS ---
Physician Documentation [facility] Name: Oriana Davis Age: 83 yrs Sex: Female : 1940 Arrival Date: 04/09/2024 Time: 16:07 Bed IW1 Private MD: ED Physician Mert Cervantes HPI: 04/09 17:08 This 83 yrs old Female presents to ER via Ambulatory with complaints of Arm Bruising. rt 17:08 Patient presents to the ED with bruising to the right upper extremity at the area of rt the arterial puncture for when she had a cardiac catheterization. Patient states that her back pain associated with her [place] has resolved, states that she feels well otherwise. Denies any pain to the area of bruising. She does state that she feels a knot underneath the skin at the area of the puncture. Denies other acute complaints at this time, symptoms are mild in severity, no other aggravating or alleviating factors.. Historical: - Allergies: 16:40 No Known Allergies; kc6 - PMHx: 16:40 Myocardial infarction; kc6 - PSHx: 16:40 Stented artery; section; hysterectomy; Tonsillectomy; kc6 - Immunization history:: Client reports receiving the 2nd dose of the Covid vaccine, Flu vaccine is up to date. - Infectious Disease History:: Denies. - Social history:: Smoking status: Patient denies any tobacco usage or history of. - Family history:: not pertinent. ROS: 17:08 Constitutional: Negative for fever, chills, and weight loss, Cardiovascular: Negative rt for chest pain, palpitations, and edema, Respiratory: Negative for shortness of breath, cough, wheezing, and pleuritic chest pain, Abdomen/GI: Negative for abdominal pain, nausea, vomiting, diarrhea, and constipation, Neuro: Negative for headache, weakness, numbness, tingling, and seizure, 17:08 MS/extremity: Positive for contusion, Negative for injury or acute deformity, pain, Exam: 17:08 Constitutional: This is a well developed, well nourished patient who is awake, alert, rt and in no acute distress. Head/Face: Normocephalic, atraumatic. Chest/axilla: Normal chest wall appearance and motion. Nontender with no deformity. No lesions are appreciated. Cardiovascular: Regular rate and rhythm with a normal S1 and S2. No gallops, murmurs, or rubs. Normal PMI, no JVD. No pulse deficits. Respiratory: Lungs have equal breath sounds bilaterally, clear to auscultation and percussion. No rales, rhonchi or wheezes noted. No increased work of breathing, no retractions or nasal flaring. Abdomen/GI: Soft, non-tender, with normal bowel sounds. No distension or tympany. No guarding or rebound. No evidence of tenderness throughout. Neuro: Awake and alert, GCS 15, oriented to person, place, time, and situation. Cranial nerves II-XII grossly intact. Motor strength 5/5 in all extremities. Sensory grossly intact. Cerebellar exam normal. Normal gait. 17:08 Musculoskeletal/extremity: Nontender bruising noted to the forearm, no area of fluctuance, palpable hematoma. Radial pulses intact, strength and sensation are intact in the fingers.. Vital Signs: 16:36 BP 107 / 93; Pulse 63; Resp 16 S; Temp 98.1(O); Pulse Ox 99% on R/A; Weight 67.13 kg; kc6 Height 5 ft. 5 in. (R); Pain 0/10; 16:36 Body Mass Index 24.63 (67.13 kg, 165.1 cm) kc 16:36 Pain Scale: Adult kc6 MDM: 16:32 Patient medically screened. rt 20:01 Differential Diagnosis Bruising following catheterization, pseudoaneurysm. Data rt reviewed: vital signs, nurses notes, radiologic studies. Test considered but Not performed: Other Details Patient states that she feels well otherwise, EKG, labs are not indicated. Care significantly affected by the following chronic conditions: Coronary artery disease. Counseling: I had a detailed discussion with the patient and/or guardian regarding the historical points, exam findings, and any diagnostic results supporting the discharge/admit diagnosis, radiology results, the need for outpatient follow up. 04/09 17:05 Order name: Upper Ext Artery Uni Tex EDMS Administered Medications: No medications were administered Disposition Summary: 04/09/24 18:09 Discharge Ordered Notes: Location: Home rt Problem: new rt Symptoms: are unchanged rt Condition: Stable rt Diagnosis - Bruising to right upper extremity following cardiac catheterization rt Followup: rt - With: Private Physician - When: 2 - 3 days - Reason: Discharge Instructions: - Discharge Summary Sheet rt - Contusion rt Forms: - Medication Reconciliation Form rt - Antibiotic Education rt - Prescription Opioid Use rt - Patient Portal Instructions rt - Leadership Thank You Letter rt Signatures: Dispatcher [employer] Mariaelena Liu, RN RN kc6 Mert Cervantes MD MD rt Corrections: (The following items were deleted from the chart) 16:44 16:44 Lower Extremity Artery Uni Ltd+[email or web address] ordered. EDMS EDMS
--- NOTE | 2024-04-09 18:10 | ER ---
Nurse's Notes [facility] Name: Oriana Davis Age: 83 yrs Sex: Female : 1940 Arrival Date: 04/09/2024 Time: 16:07 Bed IW1 Private MD: Diagnosis: Bruising to right upper extremity following cardiac catheterization Presentation: 04/09 16:36 Chief complaint: Patient states: she had a cardiac cath on Friday and has been kc6 having increased bruising and redness to the site since then. Coronavirus screen: At this time, the client does not indicate any symptoms associated with coronavirus-19. Ebola Screen: No symptoms or risks identified at this time. Initial Sepsis Screen: Does the patient meet any 2 criteria? No. Patient's initial sepsis screen is negative. Does the patient have a suspected source of infection? No. Patient's initial sepsis screen is negative. Risk Assessment: Do you want to hurt yourself or someone else? Patient reports no desire to harm self or others. Onset of symptoms was April 09, 2024. 16:36 Method Of Arrival: Ambulatory [facility] 16:36 Acuity: CARLEY 4 6 Triage Assessment: 16:40 General: Appears in no apparent distress. comfortable, well groomed, well developed, [facility] Behavior is calm, cooperative, appropriate for age. Pain: Denies pain. EENT: No signs and/or symptoms were reported regarding the EENT system. Neuro: Level of Consciousness is awake, alert, obeys commands, Oriented to person, place, time, situation, Appropriate for age. Cardiovascular: Capillary refill < 3 seconds. Respiratory: Airway is patent Trachea midline Respiratory effort is even, unlabored, Respiratory pattern is regular, symmetrical. GI: No signs and/or symptoms were reported involving the gastrointestinal system. : No signs and/or symptoms were reported regarding the genitourinary system. Derm: Skin is intact, is fragile, is thin, Skin is dry, Skin is normal, Bruising that is dark purple, on heel of right hand and palmar aspect of right wrist. Musculoskeletal: No signs and/or symptoms reported regarding the musculoskeletal system. Circulation, motion, and sensation intact. Capillary refill < 3 seconds, Range of motion: intact in all extremities. Historical: - Allergies: 16:40 No Known Allergies; kc6 - PMHx: 16:40 Myocardial infarction; kc6 - PSHx: 16:40 Stented artery; section; hysterectomy; Tonsillectomy; kc6 - Immunization history:: Client reports receiving the 2nd dose of the Covid vaccine, Flu vaccine is up to date. - Infectious Disease History:: Denies. - Social history:: Smoking status: Patient denies any tobacco usage or history of. - Family history:: not pertinent. Screenin:40 [facility] ED Fall Risk Assessment (Adult) History of falling in the last 3 months, kc6 including since admission No falls in past 3 months (0 pts) Confusion or Disorientation No (0 pts) Intoxicated or Sedated No (0 pts) Impaired Gait No (0 pts) Mobility Assist Device Used No (0 pt) Altered Elimination No (0 pt) Score/Fall Risk Level 0 - 2 = Low Risk. Abuse screen: Denies threats or abuse. Denies injuries from another. Nutritional screening: No deficits noted. Tuberculosis screening: No symptoms or risk factors identified. Assessment: 16:40 Reassessment: please see triage. kc6 17:52 Reassessment: Patient appears in no apparent distress at this time. No changes from kc6 previously documented assessment. Patient and/or family updated on plan of care and expected duration. Pain level reassessed. Patient is alert, oriented x 3, equal unlabored respirations, skin warm/dry/pink. Vital Signs: 16:36 BP 107 / 93; Pulse 63; Resp 16 S; Temp 98.1(O); Pulse Ox 99% on R/A; Weight 67.13 kg; kc6 Height 5 ft. 5 in. (R); Pain 0/10; 16:36 Body Mass Index 24.63 (67.13 kg, 165.1 cm) kc6 16:36 Pain Scale: Adult kc6 ED Course: 16:11 Patient arrived in ED. mr 16:22 Mert Cervantes MD is Attending Physician. rt 16:38 Triage completed. kc6 16:40 Arm band placed on. kc6 16:40 Patient has correct armband on for positive identification. kc6 17:54 Upper Ext Artery Uni Tex In Process Unspecified. EDMS 18:13 No provider procedures requiring assistance completed. Patient did not have IV access kc6 during this emergency room visit. Administered Medications: No medications were administered Medication: 18:13 VIS not applicable for this client. kc6 Outcome: 18:09 Discharge ordered by . rt 18:13 Discharged to home ambulatory, kc6 18:13 Condition: good 18:13 Discharge instructions given to patient, Instructed on discharge instructions, follow up and referral plans. Demonstrated understanding of instructions, follow-up care, 18:14 Patient left the ED. kc6 Signatures: Dispatcher [employer] EDMS Marsiol Holloway, Reg Reg mr Mariaelena Roach RN RN kc6 Mert Cervantes MD MD rt Corrections: (The following items were deleted from the chart) 16:40 16:36 Chief complaint: Patient states: she had a cardiac cath on Friday and has been kc6 having increased bruising and redness since then. 6 16:40 16:36 BP 107 / 93; Pulse 63bpm; Resp 16bpm; Spontaneous; Pulse Ox 99% RA; Temp 98.1F kc6 Oral; Pain 0/10, Adult; kc6
[2024-04-09 18:17] VITALS: BP 107/93; TEMP 98.1; O2SAT 99
== END 2024-04-09 18:14 | disposition home or self-care (01) ==
LOC: ER 16:07
DX: L76.32 Postprocedural hematoma of skin and subcutaneous tissue following other procedure (principal); Z95.5 Presence of coronary angioplasty implant and graft
CPT/HCPCS: 93931; 99282